=== PATIENT | female | born 1955 | race Caucasian/White ===

== ENCOUNTER → 2016-08-27 | Outpatient (CLI) | payer OTHER | LOC: FIMAGING 11:53 | PROVIDERS: ATTEND Family Medicine | DX: Z12.31 Encounter for screening mammogram for malignant neoplasm of breast (principal) | CPT/HCPCS: G0202 ==

== ENCOUNTER 2018-03-25 08:28 | Observation (INO) | payer OTHER ==
[2018-03-25] MEDS ORDERED: MECLIZINE HCL 25 MG TAB PO ONE (08:32)
[2018-03-25] MEDS ORDERED: ONDANSETRON DISINTEGRATING 4 MG TAB PO ONE (08:32)
--- NOTE | 2018-03-25 08:39 | EDPHY ---
H & P Time Seen by Provider: 03/25/18 08:31 HPI/ROS: CHIEF COMPLAINT: Vertigo HISTORY OF PRESENT ILLNESS: The patient arrives by ambulance with complaints of vertigo which began acutely this morning. She had mild symptoms yesterday. She describes symptoms which are worsened with positional changes in head movement. The patient denies any unilateral numbness or weakness. She denies fever, cough or congestion. The patient also reports mild occipital pressure. She denies any neck pain. She denies any history of fall or cervical manipulation. The patient does exercise frequently without chest pain or shortness of breath. She denies history of a recent infection. REVIEW OF SYSTEMS: A comprehensive 10 point review of systems is otherwise negative aside from elements mentioned in the history of present illness. Source: Patient Exam Limitations: No limitations - Medical/Surgical History Hx Asthma: No Hx Chronic Respiratory Disease: No Hx Diabetes: No Hx Cardiac Disease: No Hx Renal Disease: No Hx Cirrhosis: No Hx Alcoholism: No Hx HIV/AIDS: No Hx Splenectomy or Spleen Trauma: No Other PMH: HTN, HYPERLIPIDEMIA - Social History Smoking Status: Former smoker - Physical Exam Exam: General Appearance: Alert, no distress Eyes: Pupils equal and round no pallor or injection ENT, Mouth: Mucous membranes moist Respiratory: There are no retractions, lungs are clear to auscultation Cardiovascular: Regular rate and rhythm Gastrointestinal: Abdomen is soft and nontender, no masses, bowel sounds normal Neurological: A&O, normal motor function, normal sensory exam, normal cranial nerves, mild horizontal nystagmus noted with rightward gaze Skin: Warm and dry, no rashes Musculoskeletal: Neck is supple nontender Extremities: symmetrical, full range of motion Psychiatric: Patient is oriented X 3, there is no agitation Constitutional: Initial Vital Signs Temperature (C) 36.5 C 03/25/18 08:28 Heart Rate 61 03/25/18 08:28 Respiratory Rate 16 03/25/18 08:28 Blood Pressure 178/86 H 03/25/18 08:28 O2 Sat (%) 97 03/25/18 08:28 O2 Delivery Mode Room Air Allergies/Adverse Reactions: venom-honey bee [bee venom (honey bee)] Allergy (Severe, Verified 09/06/12 00:07 ) Other-Enter Comments hydrocodone [Hydrocodone] Allergy (Intermediate, Verified 09/06/12 00:04) Vomiting latex [Latex] Allergy (Unknown, Verified 09/01/11 17:38) iodine [Iodine] Allergy (Verified 09/01/11 17:38) Unknown tetanus immune globulin [Tetanus Immune Globulin] Allergy (Verified 09/01/11 17: 38) Unknown Home Medications: Medication Instructions Recorded Allopurinol [Allopurinol 100 MG 300 mg PO DAILY 08/03/11 (RX)] Lisinopril [Zestril 20 mg (RX)] 20 mg PO BID 08/03/11 Simvastatin [Zocor 20 mg (RX)] 20 mg PO DAILY18 08/03/11 Multivitamins [Multivitamin (OTC)] 1 each PO DAILY 09/02/11 Hydrochlorothiazide 12.5 mg PO DAILY 09/05/12 [Hydrochlorothiazide 12.5 MG (RX)] Pharmacy Completed 09/05/12 09/05/12 Reconciled 09/0509/05/12 Medical Decision Making - Diagnostics EKG Interpretation: EKG: Complete interpretation has been separately recorded in the [facility] archive. Summary impression: Sinus rhythm, rate 60 Imaging Results: Imaging Impressions Head CT 03/25/18 09:30 Impression: 1. No acute intracranial findings. If symptoms persist and clinical suspicion warrants, consider MRI. 2. Diffuse cerebral atrophy with periventricular and subcortical low attenuation consistent with chronic microvascular ischemic gliosis. 3. Additional findings as above. Findings discussed with Javad Dotson 03/25/2018 at 10:12. ED Course/Re-evaluation: Patient presents the ED with vertigo and vomiting. She is also having and associated occipital headache. The patient denies any history of fall or trauma. She is not anticoagulated. Aside from a stat mass noted on exam neurologic presentation is otherwise unremarkable. Given her complaints of headache she was taken for noncontrast head CT scan which demonstrates no evidence of intracranial hemorrhage or other acute MITOCHONDRIAL DISORDERS COUNSELOR abnormality. Patient was treated with IV Zofran, meclizine and fluids. She underwent serial examinations in the emergency department and continues to have ongoing dizziness and nausea. I do feel the patient needs to be admitted to the hospital for further treatment and stabilization of her positional vertigo. Consultation is made with the hospitalist service. She will be admitted by Dr. Sol Differential Diagnosis: Differential diagnosis considered includes a labyrinthitis, benign positional vertigo, intracranial hemorrhage, MITOCHONDRIAL DISORDERS COUNSELOR mass - Data Points Laboratory Results: Laboratory Results 03/25/18 08:30 03/25/18 08:30 03/25/18 03/25/18 08:30 08:30 WBC 5.17 10^3/uL 10^3/uL (3.80-9.50) RBC 4.66 10^6/uL 10^6/uL (4.18-5.33) Hgb 16.0 g/dL g/dL (12.6-16.3) Hct 47.7 % H % (38.0-47.0) MCV 102.4 fL H fL (81.5-99.8) MCH 34.3 pg H pg (27.9-34.1) MCHC 33.5 g/dL g/dL (32.4-36.7) RDW 12.4 % % (11.5-15.2) Plt Count 193 10^3/uL 10^3/uL (150-400) MPV 10.9 fL fL (8.7-11.7) Neut % (Auto) 47.0 % % (39.3-74.2) Lymph % (Auto) 40.6 % % (15.0-45.0) [place] % (Auto) 9.1 % % (4.5-13.0) Eos % (Auto) 1.9 % % (0.6-7.6) Baso % (Auto) 1.0 % % (0.3-1.7) Nucleat RBC Rel Count 0.0 % % (0.0-0.2) Absolute Neuts (auto) 2.43 10^3/uL 10^3/uL (1.70-6.50) Absolute Lymphs (auto) 2.10 10^3/uL 10^3/uL (1.00-3.00) Absolute Monos (auto) 0.47 10^3/uL 10^3/uL (0.30-0.80) Absolute Eos (auto) 0.10 10^3/uL 10^3/uL (0.03-0.40) Absolute Basos (auto) 0.05 10^3/uL 10^3/uL (0.02-0.10) Absolute Nucleated RBC 0.00 10^3/uL 10^3/uL (0-0.01) Immature Gran % 0.4 % % (0.0-1.1) Immature Gran # 0.02 10^3/uL 10^3/uL (0.00-0.10) Sodium 141 mEq/L mEq/L (135-145) Potassium 3.8 mEq/L mEq/L (3.5-5.2) Chloride 104 mEq/L mEq/L (97-110) Carbon Dioxide 23 mEq/l mEq/l (22-31) Anion Gap 14 mEq/L mEq/L (6-14) BUN 13 mg/dL mg/dL (7-23) Creatinine 0.7 mg/dL mg/dL (0.6-1.0) Estimated GFR > 60 Glucose 115 mg/dL H mg/dL (70-100) Calcium 11.9 mg/dL H mg/dL (8.5-10.4) Phosphorus 4.9 mg/dL H mg/dL (2.5-4.5) Medications Given: Discontinued Medications Meclizine HCl (Meclizine Hcl) 25 mg PO EDNOW ONE Stop: 03/25/18 08:33 Last Admin: 03/25/18 08:48 Dose: 25 mg Ondansetron HCl (Zofran Odt) 4 mg PO EDNOW ONE Stop: 03/25/18 08:33 Last Admin: 03/25/18 08:46 Dose: Not Given Ondansetron HCl (Zofran) 4 mg IVP EDNOW ONE Stop: 03/25/18 08:47 Last Admin: 03/25/18 08:46 Dose: 4 mg Departure - Departure Disposition: [facility] Inpatient Acute Clinical Impression: Vertigo Condition: Good Referrals: Patient,NotPresent [Unknown] - As per Instructions
[2018-03-25 08:44] LABS: PLATELET COUNT 193 10^3/uL (150-400)
[2018-03-25] MEDS ORDERED: ONDANSETRON 4 MG/2 ML VIAL ONE (08:44)
[2018-03-25] MEDS ORDERED: ONDANSETRON 4 MG/2 ML VIAL IVP ONE (08:46)
--- NOTE | 2018-03-25 10:10 | CPEKG ---
Test Reason : OPEN Blood Pressure : / mmHG Vent. Rate : 060 BPM Atrial Rate : 060 BPM P-R Int : 167 ms QRS Dur : 105 ms QT Int : 461 ms P-R-T Axes : 039 -12 004 degrees QTc Int : 461 ms Sinus rhythm Probable left ventricular hypertrophy Confirmed by Javad Dotson ([id number]) on 03/25/2018 10:10:05 AM Referred By: Confirmed By:Javad Dotson
[2018-03-25] MEDS ORDERED: ACETAMINOPHEN 325 MG TAB PO PRN (12:51)
[2018-03-25] MEDS ORDERED: ONDANSETRON DISINTEGRATING 4 MG TAB PO PRN (12:51)
[2018-03-25] MEDS ORDERED: ONDANSETRON 4 MG/2 ML VIAL IVP PRN (12:51)
[2018-03-25] MEDS ORDERED: MECLIZINE HCL 25 MG TAB PO PRN (12:51)
[2018-03-25] MEDS: IBUPROFEN 200 MG TAB PO PRN ×2 (13:12→21:12)
[2018-03-25] MEDS: ALLOPURINOL 300 MG TAB PO SCH (13:14)
[2018-03-25] MEDS: DILTIAZEM CD 120 MG CAP PO SCH (13:14)
--- NOTE | 2018-03-25 16:34 | ASMTCMCOM ---
CM Note CM Note Notes: Pt's chart reviewed for d/c planning. H and P not completed yet. Pt is a 62 y/o female who came to the ED due to vertigo which began yesterday, was mild, and then became acute this morning. She has vomiting also. Pt is , Andras [phone], . She is self-employed. CM will follow. D/C Plan: TBD Date Signed: 03/25/2018 04:33 PM Electronically Signed By:Chrystal Myrick
--- NOTE | 2018-03-25 17:01 | PDGENHP ---
History and Physical - Chief Complaint vertigo - History of Present Illness 62 yo female with h/o hypertension and hyperlipidemia presents to ED with vertigo. She had a brief episode of vertigo yesterday, which passed quickly. Today, it returned and was quite severe. She felt the room was spinning and had to hold onto something. She notes turning her head provokes her symptoms. No recent viral symptoms. No nausea or vomiting. No associated vision changes or speech difficulty. No weakness or facial droop. No h/o stroke. She is a non-smoker, quit many years ago. In the ED, CT head was negative. She was given Meclizine and is admitted for further management. At the time of my evaluation, she notes already feeling much better. She thinks the Meclizine has helped. She is able to ambulate. History Information - Allergies/Home Medication List Allergies/Adverse Reactions: venom-honey bee [bee venom (honey bee)] Allergy (Severe, Verified 09/06/12 00:07 ) Other-Enter Comments hydrocodone [Hydrocodone] Allergy (Intermediate, Verified 09/06/12 00:04) Vomiting latex [Latex] Allergy (Unknown, Verified 09/01/11 17:38) iodine [Iodine] Allergy (Verified 09/01/11 17:38) Unknown tetanus immune globulin [Tetanus Immune Globulin] Allergy (Verified 09/01/11 17: 38) Unknown Home Medications: Allopurinol [Allopurinol 300 MG (RX)] 300 mg PO DAILY 03/25/18 [Last Taken 03/24] Diltiazem HCl [Cartia Xt] 120 mg PO DAILY 03/25/18 [Last Taken 03/24/18] I have personally reviewed and updated: family history, medical history, social history, surgical history - Past Medical History hypertension, hyperlipidemia - Surgical History Reports: no pertinent surgical hx - Family History Positive for: non-pertinent - Social History Smoking Status: Former smoker Alcohol Use: Other (one drink daily) Drug Use: None Additional social history: 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 Lives independently. Review of Systems Review of Systems: ROS: 10pt was reviewed & negative except for what was stated in HPI & below Physical Exam Physical Exam: Temp Pulse Resp BP Pulse Ox 36.6 C 75 20 138/86 H 90 L 03/25/18 16:00 03/25/18 16:00 03/25/18 16:00 03/25/18 16:00 03/25/18 16:00 Constitutional: no apparent distress Eyes: PERRL, other (no nystagmus) Ears, Nose, Mouth, Throat: moist mucous membranes Cardiovascular: regular rate and rhythym, no murmur, rub, or gallop Respiratory: no respiratory distress, clear to auscultation Gastrointestinal: normoactive bowel sounds, soft, non-tender abdomen Skin: warm Musculoskeletal: full muscle strength Neurologic: AAOx3 Psychiatric: interacting appropriately Lab Data & Imaging Review 03/25/18 08:30 03/25/18 08:30 WBC 5.17 10^3/uL (3.80-9.50) 03/25/18 08:30 RBC 4.66 10^6/uL (4.18-5.33) 03/25/18 08:30 Hgb 16.0 g/dL (12.6-16.3) 03/25/18 08:30 Hct 47.7 % (38.0-47.0) H 03/25/18 08:30 MCV 102.4 fL (81.5-99.8) H 03/25/18 08:30 MCH 34.3 pg (27.9-34.1) H 03/25/18 08:30 MCHC 33.5 g/dL (32.4-36.7) 03/25/18 08:30 RDW 12.4 % (11.5-15.2) 03/25/18 08:30 Plt Count 193 10^3/uL (150-400) 03/25/18 08:30 MPV 10.9 fL (8.7-11.7) 03/25/18 08:30 Neut % (Auto) 47.0 % (39.3-74.2) 03/25/18 08:30 Lymph % (Auto) 40.6 % (15.0-45.0) 03/25/18 08:30 [place] % (Auto) 9.1 % (4.5-13.0) 03/25/18 08:30 Eos % (Auto) 1.9 % (0.6-7.6) 03/25/18 08:30 Baso % (Auto) 1.0 % (0.3-1.7) 03/25/18 08:30 Nucleat RBC Rel Count 0.0 % (0.0-0.2) 03/25/18 08:30 Absolute Neuts (auto) 2.43 10^3/uL (1.70-6.50) 03/25/18 08:30 Absolute Lymphs (auto) 2.10 10^3/uL (1.00-3.00) 03/25/18 08:30 Absolute Monos (auto) 0.47 10^3/uL (0.30-0.80) 03/25/18 08:30 Absolute Eos (auto) 0.10 10^3/uL (0.03-0.40) 03/25/18 08:30 Absolute Basos (auto) 0.05 10^3/uL (0.02-0.10) 03/25/18 08:30 Absolute Nucleated RBC 0.00 10^3/uL (0-0.01) 03/25/18 08:30 Immature Gran % 0.4 % (0.0-1.1) 03/25/18 08:30 Immature Gran # 0.02 10^3/uL (0.00-0.10) 03/25/18 08:30 Sodium 141 mEq/L (135-145) 03/25/18 08:30 Potassium 3.8 mEq/L (3.5-5.2) 03/25/18 08:30 Chloride 104 mEq/L (97-110) 03/25/18 08:30 Carbon Dioxide 23 mEq/l (22-31) 03/25/18 08:30 Anion Gap 14 mEq/L (6-14) 03/25/18 08:30 BUN 13 mg/dL (7-23) 03/25/18 08:30 Creatinine 0.7 mg/dL (0.6-1.0) 03/25/18 08:30 Estimated GFR > 60 03/25/18 08:30 Glucose 115 mg/dL (70-100) H 03/25/18 08:30 Calcium 11.9 mg/dL (8.5-10.4) H 03/25/18 08:30 Phosphorus 4.9 mg/dL (2.5-4.5) H 03/25/18 08:30 Assessment & Plan Assessment: Vertigo (Acute) - suspect BPPV versus viral labyrinthitis. She has been responsive to Meclizine. No nystagmus on exam. Doubt CVA. CT head neg. -admit for observation -cont meclizine, supportive care -PT/OT evals, if symptoms persist could try Verenice's -if symptoms worsen, consider MRI Hypertension - adequate control -cont home lisinopril Hyperlipidemia - cont home statin Dispo - obs, likely dc in am if improved
[2018-03-25] MEDS ORDERED: MELATONIN 3 MG TAB PO PRN (23:40)
[2018-03-26 08:28] VITALS: BP 128/86
[2018-03-26] MEDS: ALLOPURINOL 300 MG TAB PO SCH (08:38)
[2018-03-26] MEDS: DILTIAZEM CD 120 MG CAP PO SCH (08:38)
[2018-03-26] MEDS ORDERED: ENOXAPARIN 40 MG/0.4 ML SYR SC SCH (09:00)
--- NOTE | 2018-03-26 12:15 | ASMTLACE ---
LACE Length of stay for Answers: 1 day current admission Acuity / Level of Answers: No Care: Did the patient have an inpatient admission? Comorbidities - select Answers: Other Notes: HTN; HLD all that apply # of Emergency department Answers: 1-2 visits in the last 6 months Score: 3 Date Signed: 03/26/2018 12:15 PM Electronically Signed By:Amparo Kinsey RN
--- NOTE | 2018-03-26 12:16 | ASMTCMCOM ---
CM Note CM Note Notes: Spoke w/RN, pt will dc home independent w/support of . No other needs. DC Plan: Independent Date Signed: 03/26/2018 12:16 PM Electronically Signed By:Amparo Kinsey RN
--- NOTE | 2018-03-26 12:30 | ASMTCMCOM ---
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 Will likely be independent at dc, no other needs identified. CM available for any changes. DC Plan: Independent Date Signed: 03/26/2018 12:29 PM Electronically Signed By:Amparo Kinsey RN
--- NOTE | 2018-03-26 14:11 | GDS ---
DISCHARGE DIAGNOSIS: Vertigo. PHYSICAL EXAM: GENERAL: The patient is alert. VITAL SIGNS: Afebrile at 36.4, pulse 68, respirator y rate 16, blood pressure 128/86, saturating 89% on room air. I have seen and evaluated the patient on the day of discharge. HOSPITAL COURSE: The patient is a 62-year-old female who presents to the emergency room with complai nts of dizziness. She was evaluated and diagnosed with acute vertigo. She did receive evaluation du ring this hospitalization from Physical Therapy. She was treated with meclizine, as well as supporti care. Her symptoms have completely resolved. She is ambulating independently and has no further resemblance of vertigo. She does have a history of hypertension, as well as hyperlipidemia and her h ome medications have been continued. DISPOSITION: She will be discharged home to follow up in the outpatient setting with her primary car e physician. DISCHARGE MEDICATIONS: Please refer to EMR form. I have not provided any new prescriptions for the patient at the time of disposition. /[id number]/MODL
== END 2018-03-26 11:26 | disposition home or self-care (01) ==
LOC: EDUNIT# → F3E 11:45
PROVIDERS: ADMIT Hospitalist; ATTEND Hospitalist
DX: R42 Dizziness and giddiness (principal)
CPT/HCPCS: 70450; 93005; 96372; 96374; 97161; 97165; 97530; 99285; G0378; J1650; J2405